=== PATIENT | male | born 1945 | race Caucasian/White ===

== ENCOUNTER 2023-10-05 07:09 | Day surgery (SDC) | payer MEDICARE ==
[2023-10-04 08:34] VITALS: BMI 27.1
[~2023-10-05 07:09] MED LIST: LACTATED RINGERS 1,000 ML IV SCH
[2023-10-05 08:04] VITALS: TEMP 97.2
[2023-10-05] MEDS ORDERED: LIDOCAINE 1% INJ 10MG/ML (20 ML MDV) ONE (08:12)
[2023-10-05] MEDS ORDERED: PROPOFOL 10 MG/ML 20 ML VIAL IV ONE (08:12)
--- NOTE | 2023-10-05 08:37 | P.PCN ---
Date of Procedure: 10/05/23 Procedure(s) Performed: Brief history: Patient is a pleasant 77-year-old white male scheduled for an elective upper endoscopy as well as colonoscopy as a part of evaluation of liver cirrhosis/screening for esophageal varices and screening for colon cancer Procedure performed: Esophagogastroduodenoscopy with biopsy Colonoscopy with snare polypectomy Preoperative diagnosis: History of liver cirrhosis/screening for esophageal varices Screening for colon cancer Anesthesia: MAC Procedure: After informed consent was obtained from the patient was brought into the endoscopy unit and IV sedation was administered by anesthesia under continuous monitoring. Initially upper endoscopy was done. The Olympus GF 160 video endoscope was inserted inserted into the mouth and esophagus intubated without any difficulty and was gradually advanced into the stomach and duodenum and carefully examined. The bulb and second part of the duodenum appeared normal. The scope was then withdrawn into the stomach adequately insufflated with air and upon careful examination the antrum and body, cardia and fundus appeared normal. No gastric varices identified. The scope was then withdrawn into the esophagus. The GE junction was located at 40 cm to the incisors. Small hiatal hernia noted. There was a 3 mm hyperplastic appearing mucosa just proximal to the GE junction that was biopsied. No esophageal varices seen. Rest of the esophagus appeared normal. Patient tolerated the procedure well. At this time the patient continued to remain sedation. Initial digital rectal examination was normal. Olympus CF 160 video colonoscope was then inserted into the rectum and gradually advanced to the cecum without any difficulty. Careful examination was performed as the scope was gradually being withdrawn. The prep was excellent. The cecum, ascending colon appeared normal. The transverse colon there was a 5 limited polyp that was removed by cold snare polypectomy. Rest of the, transverse colon, descending colon, sigmoid colon and rectum appeared normal. Scattered sigmoid diverticulosis. Retroflexion was performed in the rectum and no lesions were noted. Patient tolerated the procedure well. Impression: 1. 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 No evidence of gastric or esophageal varices 2. colonoscopy revealed 5 mm sessile transverse colon polyp status post cold snare polypectomy and scattered sigmoid diverticulosis Recommendations: Findings of this examination were discussed with the patient as well as his family. He was advised to follow with the biopsy results. If the biopsy results Santillan's esophagus he can have a repeat upper endoscopy in 3 years.
[2023-10-05 09:47] VITALS: BP 135/72; PULSE 65; RESP 20
== END 2023-10-05 10:00 | disposition home or self-care (01) ==
LOC: ORWHC2ENDO 07:09
PROVIDERS: ATTEND Internal Medicine Gastroenterology
DX: Z12.11 Encounter for screening for malignant neoplasm of colon (principal); D12.3 Benign neoplasm of transverse colon; K21.00 Gastro-esophageal reflux disease with esophagitis, without bleeding; K22.70 Barrett's esophagus without dysplasia; K44.9 Diaphragmatic hernia without obstruction or gangrene; K74.60 Unspecified cirrhosis of liver; Z79.899 Other long term (current) drug therapy
CPT/HCPCS: 88305; 45385; 43239; J2001; J2704